=== PATIENT | male | born 1945 | race Caucasian/White ===

== ENCOUNTER 2025-02-06 13:29 | Outpatient (CLI) | payer MEDICARE, BC, SELFPAY ==
--- NOTE | ~2025-02-06 | CT_ITS ---
EXAMINATION: CT sinus wo con DATE: 02/06/2025 13:47 INDICATION: Sinusitis TECHNIQUE: Computed tomography (CT) of the paranasal sinuses was performed without intravenous contrast. The dose-length product was 282.50 mGy-cm. COMPARISON: None FINDINGS: There is no significant mucosal thickening. No air-fluid levels. Leftward nasal septal deviation. No mucoperiosteal reaction. Ostiomeatal units are patent. Mastoids are pneumatized. IMPRESSION: 1. No significant sinus disease. Reviewed, dictated and finalized at location O. SPORT CONDUCTOR
--- OUTSIDE RECORDS SUMMARY | 2025-02-06 20:06 | XMS_ITS | Encounter Summary ---
Author Organization [facility] Address [facility] [place] [address] Care Team Providers Care Housefellow Name Role Phone Unavailable Primary Care Provider Unavailabl e Encounter Details Date Type Department Care Team (Latest Contact Info) Description 02/06/[address] [facility] , Kylie Alcala MD Social History Tobacco Use Types Packs/Day Years Used Date Smoking Tobacco: Never Assessed Sex and Gender Information Value Date Recorded Sex Assigned at Not on file Legal Sex Male 9:41 PM CDT Gender Identity Not on file Sexual Orientation Not on file documented as of this encounter Plan of Treatment Not on file documented as of this encounter Visit Diagnoses Not on filedocumented in this encounter
--- OUTSIDE RECORDS SUMMARY | 2025-02-06 20:06 | XMS_ITS | Clinical Summary ---
Author Organization [facility] Address [address] [place] [address] Care Team Providers Care Precinct Police Sergeant Name Role Phone Tristin Corrigan MD Primary Care Provider [phone] Allergies Active Allergy Reactions Criticality Noted Date Comments Acetaminophen Unknown 12/11/2023 patient states it hypes him up Adhesive Rash Medium 12/11/2023 causes his skin to blister from bandaids Hydrocodone Other (See comments) High 12/11/2023 patient states it hypes him up Iodinated Contrast Media Swelling High 05/02/2024 Throat swelled and body inflammation (sweating) Other Hives High 12/11/2023 Sulfa (Sulfonamide Antibiotics) Hives High 12/11/2023 Medications ALPRAZolam (XANAX) 0.5 mg tablet Take 0.05 mg by mouth nightly as needed. 1 11/01/2017 Active lisinopril (PRINIVIL,ZESTR IL) 5 mg tablet Take 1 tablet (5 mg total) by mouth daily Active multivitamin capsule Take 1 capsule by mouth daily Active meclizine (ANTIVERT) 25 mg tablet Take 25 mg by mouth daily as needed 0 11/28/2018 Active Active Problems Problem Noted Date Diagnosed Date Anorectal pain 05/05/2024 Benign prostatic hyperplasia 05/02/2024 Cataract of left eye 05/02/2024 Dysuria 05/02/2024 Hemorrhoids 05/02/2024 Hypothyroidism 05/02/2024 Low back pain 05/02/2024 Personal history of other en docrine, nutritional and metabolic disease 05/02/2024 Polyp of colon 05/02/2024 Overview (05/02/2024): precancerous polyp found, repeat colonoscopy in 5 years Right-sided tinnitus 05/02/2024 Sinus infection 05/02/2024 Squamous cell carcinoma of skin 05/02/2024 Overview (05/02/2024): bottom lip Plantar fasciitis of left foot 07/13/2020 Pain in left foot 07/13/2020 Abnormal TSH 01/22/2018 Assessment & Plan (02/04/2019 9:50 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): Repeat thyroid labs in September 2018 WNL Plan to repeat labs today and if still remain normal, pt will be released back to PCP Assessment & Plan (01/22/2018 1:07 PM CDT): reviewed recent thyroid labs Pt not symptomatic , very subtle thyroid lab abnormalities Recommend no treatment at this Repeat TFT labs every 6 months to follow up or sooner if any symptoms Biliary calculus 11/09/2009 Encounters Date Type Department Care Team Description 12/31/2024 Telephone [facility] Medicine Otolaryngology [address] [place] [address] Myriam Alarcon MS from Last 3 Months Immunizations Immunization Administration Dates Next Due Tdap 09/10/2014,09/10/2014 Medical History Medical History Date Comments Hypertension 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 Monthly or less 08/08/2024 Q2: How many drinks containi ng alcohol do you have on a typical day when you are drinking? Patient does not drink Q3: How often do you have si x or more drinks on one occasion? Never 08/08/2024 PHQ-2 Answer Date Recorded PHQ-2 Score 0 02/04/2019 Sex and Gender Information Value Date Recorded Sex Assigned at Not on file Legal Sex Male 7:09 AM TRESTLE MAINTERNANCE LABORER Gender Identity Not on file Sexual Orientation Not on file Last Filed Vital Signs Vital Sign Reading Time Taken Comments Blood Pressure 134/88 08/08/2024 1:13 PM CDT Pulse 73 08/08/2024 1:13 PM CDT Temperature 36.5 C (97.7 F) 08/08/2024 1:13 PM CDT Respiratory Rate 18 02/04/2019 10:48 AM TRESTLE MAINTERNANCE LABORER Oxygen Saturation 97% 12/11/2023 11:09 AM CDT Inhaled Oxygen Concentration - - Weight 97.2 kg (214 lb 3.2 oz) 08/08/2024 1:13 P M CDT Height 188 cm (6' 2) 08/08/2024 1:13 PM CDT Body Mass Index 27.5 08/08/2024 1:13 PM CDT Plan of Treatment Health Maintenance Due Date Last Done Comments Fall Risk Assessment 1945 Hepatitis C Screening 1945 Hepatitis B Screening 1964 Pneumococcal vaccine 65+ (1 of 1 - PCV) 1996 Zoster Vaccine (1 of 2) 1996 Well Visit 65+ 09/27/2011 Depression Screening 02/05/2020 02/04/2019, 01/23/20 18 DTaP/Tdap/Td Vaccine (3 - Td or Tdap) 09/10/202401/2015, 09/10/2014 Influenza Vaccine (#1) 2024 Insurance MEDICARE [facility] MEDICARE [facility] Care Teams Precinct Police Sergeant Relationship Specialty Start Date End Date Tristin Corrigan MD PCP - General Family Practice 07/30/18
--- OUTSIDE RECORDS SUMMARY | 2025-02-06 20:06 | XMS_ITS | Clinical Summary ---
Author Organization [facility] Address [facility] [place] [address] Care Team Providers Care Hay Sorter Name Role Phone Unavailable Primary Care Provider Unavailabl e Social History Tobacco Use Types Packs/Day Years Used Date Smoking Tobacco: Never Assessed Sex and Gender Information Value Date Recorded Sex Assigned at Not on file Legal Sex Male 9:41 PM CDT Gender Identity Not on file Sexual Orientation Not on file Last Filed Vital Signs Vital Sign Reading Time Taken Comments Blood Pressure 148/84 03/11/2014 4:50 PM DOWEL STICKER OPERATOR Pulse 76 03/11/2014 4:50 PM DOWEL STICKER OPERATOR Temperature - - Respiratory Rate - - Oxygen Saturation - - Inhaled Oxygen Concentration - - Weight 96.6 kg (213 lb) 03/11/2014 4:50 PM DOWEL STICKER OPERATOR Height 188 cm (6' 2) 03/11/2014 4:50 PM DOWEL STICKER OPERATOR Body Mass Index 27.35 03/11/2014 4:50 PM DOWEL STICKER OPERATOR Plan of Treatment Health Maintenance Due Date Last Done Comments Hepatitis C 1963 DTaP, Tdap and Td Vaccines ( 1 - Tdap) 1965 Pneumococcal Vaccine: 50+ Ye ars (1 of 1 - PCV) 1996 Zoster Vaccines (1 of 2) 1996 RSV Immunization or 60+ Years (1 - 1-dose 75+ series) 2021 COVID-19 Vaccine ( - 2024-2 6 season) 2024 Influenza Adult (#1) 2025 Colorectal Cancer Screening Colonoscopy (10 Years) Discontinued Hepatitis A Vaccines Aged Out No long er eligible based on patient's age to complete this topic Meningococcal B Vaccine Aged Out No l onger eligible based on patient's age to complete this topic Meningococcal Vaccine Aged Out No jf harleen eligible based on patient's age to complete this topic RSV Immunizations Under 20 Months Aged Out No longer eligible based on patient's age to complete this topic Procedures Procedure Name Priority Date/Time Associated Diagnosis Comments COLONOSCOPY Routine DOWEL STICKER OPERATOR from Last 3 Months or Most Recently Relevant to Health Maintenance Results * Colonoscopy ( DOWEL STICKER OPERATOR) Narrative [facility] TO EPIC CONVERSION - DOWEL STICKER OPERATOR Documented hx of procedure Procedure Note , Generic Conversion, - 02/04/2018 Documented hx of procedure us Generic Conversion Md [facility] PROCEDURE ORDERABLES Final Result [facility] TO EPIC CONVERSION from Last 3 Months or Most Recently Relevant to Health Maintenance
--- OUTSIDE RECORDS SUMMARY | 2025-02-06 20:06 | XMS_ITS | Clinical Summary ---
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
--- OUTSIDE RECORDS SUMMARY | 2025-02-06 20:06 | XMS_ITS | Data Portability ---
Author Organization [facility] [address] [facility] Office Address [address] [facility] [address] [place] [address] Care Team Providers Care Fitter Type Bar And Segment Name Role Phone LOU PANG Primary Care Provider [phone] EYAD WHEAT Primary Care Provider [phone] Assessment No assessment recorded. Plan of Treatment Reminders Order Date Submit Date Provider Last Modified By Organization Details Last Modified Time Details Appointments None recorded. Lab None recorded. Referral None recorded. Procedures None recorded. Surgeries None recorded. Imaging None recorded. Medication Orders Medrol (William) 4 mg tablets in a dose pack 021 [address], [address] [place], [place], [id number], 11:49:15 Patient TargetsNo targets recorded. Patient InstructionsNo instructions recorded. Reason for Referral None Reported. Problems Name Problem SNOMED Code Status Onset Date Resolution Date Notes Provider Name and Address Organization Details Recorded Time Pain in left foot 67246765840881 7 Active 2020 Kelsey Soriano DPM [address] [facility], [place], [address], [facility], 1 11:48:52 Plantar fasciitis of left foot [id number] 101 Active 2020 Kelsey Soriano DPM [address] [facility],[address], [place], [address], [facility], 1 11:48:52 Problem Notes None recorded. Procedures Surgical History Date Name Laterality Status Provider Name and Address Organization Details Recorded Time 1 Foot Strapping completed Kelsey Soriano, RIKA [address] [facility],[address] [place] [address], [phone], [facility], 07/13/2020 15:54:21 1 Foot X-ray 3 Views completed Kelsey Soriano DPM [address] [facility],[address], [place], [address], [facility], 07/13/2020 15:54:42 colonoscopy completed [facility], 07/13/2020 11:30:44 Imaging Results None recorded. Procedure Notes None recorded. Medical Equipment None Reported. Allergies Allergen ID Allergen Name Allergen Category Reaction Reaction Severity Criticality Documentation Date Start Date Code Code System Note Provider Name and Address Organization Details Recorded Time 808 Substance with sulfonami de structure and antibacte rial mechanism of action (substanc e) medicatio n hives moderate Not available 07/13/2020 25436 8003 SNOMED [facility], 1 11:28:12 Medications Name Sig Start Date Stop Date Status Note LastModified by Organization Details LastModified Time zinc 50 mg tabs TAKE ONE TABLET BY MOUTH ONCE DAILY active Not Available Not Available No t Available clotrimazol e 10 mg nakita DIS 1 KRYSTAL PO FID 07/13 completed Not Available Not Available Not Available azithromyci n 250 mg tablet TK 2 TS PO FOR 1 DAY THEN TK 1 T PO D FOR 4 DAYS 07/13 completed Not Available Not Available Not Available prednisone 20 mg tablet TK 1 T PO BID FOR 5 DAYS 07/13 completed Not Available Not Available Not Available ciprofloxac in 500 mg tablet TK 1 T PO BID 07/13 completed Not Available Not Available Not Available sildenafil 100 mg tablet TAKE 1 TABLET BY MOUTH NEEDED 07/13 completed Not Available Not Available Not Available alprazolam 0.5 mg tablet TK 1 T PO TID PRA 07/13 completed Not Available Not Available Not Available Proctozone- HC 2.5 % topical cream perineal applicator CLAU TOPICALLY TID 07/13 completed Not Available Not Available Not Available meclizine 25 mg tablet TK 1 T PO TID PRF DIZZINESS 07/13 completed Not Available Not Available Not Available lisinopril 10 mg tablet TK ONE-HALF T PO DAILY 07/13 completed Not Available Not Available Not Available lisinopril 5 mg tablet TAKE 1 TABLET BY MOUTH DAILY active Not Available Not Available No t Available hydroxychlo roquine 200 mg tablet TAKE 1 TABLET BY MOUTH DAILY FOR 5 DAYS, THEN 1 TABLET ONCE WEEKLY THEREAFTE R 07/13 completed Not Available Not Available Not Available methylpredn isolone 4 mg tablets in a dose pack FOLLOW PACKAGE DIRECTION S active Not Available Not Available No t Available clotrimazol e 1 % topical cream CLAU EXT AA BID 07/13 completed Not Available Not Available Not Available amoxicillin 875 mg-potassiu m clavulanate 125 mg tablet TK 1 T PO BID 07/13 completed Not Available Not Available Not Available neomycin-po lymyxin-hyd rocort 3.5 mg-10,000 unit/mL-1 % ear drops,susp INT 4 GTS IN AU Q 6 H FOR 10 DAYS 07/13 completed Not Available Not Available Not Available Vitamin C active Not Available Not Yris ilable Not Available Vitamin D3 active Not Available Not Av ailable Not Available Vitals Date Recorded Body height Body mass index (BMI) Body weight Heart rate Oxygen saturation Oxygen saturation in Arterial blood by Pulse oximetry Body temperature Pain severity - 0-10 verbal numeric rating [Score] - Reported Systolic And Diastolic Provider Name and Address Organization Details Last Updated DateTime 1 187.96 cm 28 kg/m2 68336.1 4 g 72 /min 95 % 95 % 97.2 [degF] 7 161/99 mm[Hg] Latesha Tyson [facility], 11:27:36 Social History Question Answer Notes LastModified by Organizat ion Details LastModified Time Tobacco Smoking Status Never Smoker Latesha ardon [facility], 07/13/2020 11:30:16 Marital Status [email or web address] Informati on not available 07/13/2020 What Was The Date Of Your Most Recent Tobacco Screening? 07/13/2020 [email or web address] Information not available 07/13/2020 How Much Tobacco Do You Smoke? No [email or web address] Information not available 07/13/2020 How Many Years Have You Smoked Tobacco? 0 [email or web address] Information not available 07/13/2020 Sex: Unknown Functional Status Question Answer Note LastModified by Organizat ion Details LastModified Time What is your level of alcohol consumption? None [email or web address] Information not available 07/13/2020 Do you or have you ever used smokeless tobacco? Never used smokeless tobacco [email or web address] Information not available 07/13/2020 What is your occupation? Retired Information not available 07/13/2020 Do you or have you ever used e-cigarettes or vape? Never used electronic cigarettes [email or web address] Information not available 07/13/2020 Mental Status None recorded. Family History Relationship Description Onset Age of this Age Resolved Age Notes LastModified by Organization Details LastModified Time Unspecified Relation Hypertensive disorder [email or web address] Not available 07/02 11:30:10 Medical History Condition Response Coronary Artery Disease N Gout N Artificial Joints N Thyroid Problems N Lung Disease N Blood Clots N Pacemaker N Edema N Anemia N Back Pain N Deep Vein Thrombosis N Varicose Veins N Diabetes N Bleeding Disorder N Arthritis N Seizures/Epilepsy N AIDS/HIV N Cancer N Stroke N Asthma N Leg or Foot Ulcers N Raynaud's Disease N Peripheral Vascular Disease N Hepatitis N Liver Disease N Heart Disease N Rheumatoid Arthritis N Pulmonary Embolism N Foot Deformity N Fibromyalgia N Hypertension Y Osteoporosis N Kidney Disease N Past Encounters Encounter ID Performer Location Encounter Start Date Encounter Closed Date Diagnosis/Indication Diagnosis SNOMED-CT Code Diagnosis ICD10 Code Diagnosis IMO Codes Diagnosis Note [id number] Kelsey Soriano DPM [address] [facility] Office [address] [facility] [address] [place] [phone] 07/13/2020 10:48:19 07/13/2020 12:01:39 Pain in left foot 4160500492 31898 M79.672 The conditions , etiologies , options for care, treatment plan, and prognosis were discussed with the patient. Both conservati ve and surgical options for care were reviewed. Conservati velchin I recommende d that they wear more supportive shoes with a stiff-sole , a toe box wide enough for their foot, more padding, and overall better fitting shoes. Discussed the benefits of over the counter and/or prescripti on orthotics and explained that orthotics increase shock absorption and that the use of orthotics may possibly delay, or even potentiall y deter, requiring surgery for their condition. Discussed the benefits of rest, stretching , home physical therapy, ice, changes in shoe gear, more supportive shoegear, injections , NSAIDs, orthotics, and foot strapping. A handout demonstrat ing the icing and home physical therapy stretching techniques was given to the patient at this visit. Answered all of patient's questions. Discussed surgical interventi on in detail. I discussed the risks of procedure which include, but are not limited to: infection, recurrence , no improvemen t, worsening of condition, loss of limb, chronic swelling, chronic pain, hardware failure, need for future surgery, or numbness. Recovery time, post op protocols including weightbear ing status, and pain levels were discussed and the patient understand s the recovery time for this procedure and was given an opportunit y to ask questions. They understand that there are no guarantees on the outcome of any medical procedure and acknowledg es that no guarantee has been made with regard to these procedures . All questions were answered to the best of my ability; the patient would like to continue conservati ve therapy at this time. The patient voiced understand ing of the condition, home care, and expected healing, and was happy with this treatment plan. They are to return to the office in 4 - 6 weeks. Plantar fa sciitis of left foot [id number] 6159540 M72.2 Bursitis o f foot region 584955495 M77.52 Health Concerns Section Related Observation LastModified by Organization Detai ls LastModified Time None Recorded Concern Status LastModified by Organization Details LastModified Time None Recorded Advance Directives Directive None Recorded Payers Insurance Date Sequence Insurance Name Policy Number Policy Guallpa Covered Member ID Guallpa Member ID Guarantor Name 09/01/2020 1 [place] Juan Dorado [id number] Juan Dorado 09/01/2020 2 [place] [employer] 106 Fiordaliza Dorado [id number] Juan Dorado Notes Date Note Type Note Provider Name and Address Organization Details Recorded Time 07/13/2020 text/html Patient presents the office with a chief complaint of pain in the left heel and arch that has been present since around 2019, he felt a pop in his arch and is aching, throbbing, stabbing in nature. Relates that the pain is worsening and that increases the pain. Relates that they do have pain with first step out of bed and after being seated for periods of time. The pain is relieved with rest. They do not complain of tingling and burning to the feet. Previous treatments include changes in shoe gear, rest, ice, massage, home exercises, decreasing activities, wpzy-psh-[id number] shoe inserts and exgr-kzf-dahpejt pain medications. Outside reports reviewed: Office notes and historical medical records Kelsey Soriano, RIKA [address] [facility], [place], [address], [facility], 07/13/2020 15:56:34
== END 2025-02-06 13:30 | disposition home or self-care (01) ==
LOC: CHSIMG 13:33
PROVIDERS: Visit Provider Otolaryngology
DX: J32.9 Chronic sinusitis, unspecified (principal); J34.2 Deviated nasal septum; R44.8 Other symptoms and signs involving general sensations and perceptions
CPT/HCPCS: 70486

== ENCOUNTER 2025-03-11 14:53 | Outpatient (CLI) | payer MEDICARE, BC, SELFPAY ==
--- NOTE | ~2025-03-11 | XR_ITS ---
[id number] Indication: Cervicalgia x 3 weeks, no inj, no surg Comparison: None Findings: The vertebral heights are intact. No fracture or subluxation. Moderate loss of disc height at C5-6 and C6-7. Soft tissues unremarkable Impression: No acute abnormality. Reviewed, dictated and finalized at location P. FORCE SENIOR OFFICER Impression: No acute abnormality.
== END 2025-03-11 14:54 | disposition home or self-care (01) ==
LOC: GOSHIMG 14:55
PROVIDERS: PCP Otolaryngology; Visit Provider Otolaryngology
DX: M54.2 Cervicalgia (principal); H92.09 Otalgia, unspecified ear
CPT/HCPCS: 72040